=== PATIENT | male | born 1965 | race Caucasian/White ===

== ENCOUNTER 2019-06-12 12:35 | Outpatient (CLI) | payer BC, SELFPAY ==
--- NOTE | 2019-06-12 | ECHO_ITS ---
Patient Info Name: Cameron Joy Age: 53 years : 1965 Gender: Male Ht: 72 in Wt: 220 lbs BSA: 2.27 m2 HR: 65 bpm BP: 154 / 101 mmHg Heart Rhythm: Sinus Rhythm Technical Quality: Good Exam Date: 06/12/2019 12:57 PM Exam Location: [facility] Pulmonary Patient Status: Outpatient Admit Date: 06/12/2019 Staff Ordering Physician: Fredrick*, Demian Mcbride MD [employer] Member: Florin Del Rio RDCS Attending Provider: Fredrick*, Demian Mcbride MD Referring Physician: Justin SANZ; Exam Type: CA echo doppler color flow Study Info Indications R06.00 - Dyspnea, unspecified Complete two-dimensional, color flow and Doppler transthoracic echocardiogram is performed. Strain analysis performed. History/Risk Factors Dyspnea, HTN. Summary 1. Left ventricular chamber dimension is normal. 2. Left ventricular systolic function is normal, estimated at 60-65%. 3. There is moderately increased left ventricular wall thickness. 4. The left ventricular diastolic function is normal. 5. Global longitudinal strain is normal at -18.5%. 6. Left atrial chamber dimension is mildly enlarged. 7. There is trace mitral valve regurgitation. 8. There is trace tricuspid valve regurgitation. 9. No pulmonary hypertension, estimated pulmonary arterial systolic pressure is 33 mmHg. Left Ventricle Tissue doppler is not performed. Global longitudinal strain is normal at -18.5%. Left ventricular chamber dimension is normal. Left ventricular systolic function is normal, estimated at 60-65%. There is moderately increased left ventricular wall thickness. The left ventricular diastolic function is normal. Right Ventricle Right ventricular chamber dimension is normal. Right ventricular systolic function is normal. Left Atria Left atrial chamber dimension is mildly enlarged. Right Atria Right atrial chamber dimension is normal. Aortic Valve The aortic valve is trileaflet. There is no aortic valve stenosis. There is no aortic valve regurgitation. Pulmonic Valve There is no pulmonic regurgitation. Mitral Valve There is no mitral valve stenosis. There is trace mitral valve regurgitation. Tricuspid Valve There is trace tricuspid valve regurgitation. No pulmonary hypertension, estimated pulmonary arterial systolic pressure is 33 mmHg. Pericardium/Pleural There is no pericardial effusion. Inferior Vena Cava Normal inferior vena cava with >50% collapse upon inspiration consistent with normal right atrial pressure, 5 mmHg. Aorta The aortic root size at the sinus of Valsalva is normal. Left Ventricular Outflow Tract Name Value Normal LVOT 2D LVOT Diameter 2.2 cm LVOT Doppler LVOT Peak Gradient 6 mmHg LVOT Mean Gradient 3 mmHg LVOT VTI 26 cm LVOT VTI/AV VTI Ratio 0.8 LVOT Stroke Volume 95 ml LVOT CO 6.4 l/min LVOT CI 2.8 l/min/m2 Mitral Valve
--- NOTE | 2019-06-12 15:21 | WPDPFTINT ---
PFT Interpretation PFT Interpretation: DOS: 06/12/2019 REQUESTING: Dr Anderson REASON FOR TESTING: Dyspnea PULMONARY FUNCTION TESTS This test shows reliable and reproducible results. Spirometry: FEV1 is 109%< normal. FVC is 105%, normal. FEV1% is 75%, normal. No bronchodilator was given. Lung volumes: Total lung capacity is 103%, normal. Residual volume is not elevated, no evidence of air trapping. Airway resistance is elevated 168%. Diffusion: DLCO is normal 85%. Flow volume loop: Normal. IMPRESSION: Normal study, no bronchodilator was given. Mild increased in airway resistance. Mirna Napier MD
== END 2019-06-12 12:36 | disposition home or self-care (01) ==
PROVIDERS: PCP Internal Medicine; Visit Provider Internal Medicine
DX: R06.09 Other forms of dyspnea (principal)
CPT/HCPCS: 93306; 94375; 94726; 94729

== ENCOUNTER → 2022-12-03 12:52 | Outpatient (CLI) | payer BC, SELFPAY ==
--- NOTE | ~2022-12-03 | MR_ITS ---
CORRECTED REPORT Changed PCP from Damaris CAMARGO to Demian Anderson M.D. [id number] EXAMINATION: MR thoracic spine wo/w con DATE: 12/03/2022 14:50 INDICATION: Multiple sclerosis. TECHNIQUE: Magnetic resonance imaging (MRI) of the thoracic spine was performed without and with 20 mL MultiHance intravenous contrast. COMPARISON: None FINDINGS: There is 6 degrees levocurvature of thoracic spine. There is mild chronic anterior wedging of T6 vertebral body. Intervertebral disc heights are normal. The discs do not extend beyond the endplate margins. There is multilevel mild facet joint osteoarthritis. There is no neural foraminal stenosis or central canal stenosis. The spinal cord signal intensity is normal in the thoracic spine. There is no abnormal contrast enhancement. IMPRESSION: 1. Normal thoracic spinal cord. Reviewed, dictated and finalized at location E. MTDD
--- NOTE | ~2022-12-03 | MR_ITS ---
CORRECTED REPORT Changed PCP from Damaris CAMARGO to Demian Anderson M.D. [id number] EXAMINATION: MR cervical spine wo/w con DATE: 12/03/2022 14:49 INDICATION: Multiple sclerosis. TECHNIQUE: Magnetic resonance imaging (MRI) of the cervical spine was performed without and with 20 mL MultiHance intravenous contrast. COMPARISON: Cervical spine MRI 07/02/2011 FINDINGS: Bone alignment is normal. Vertebral body heights are normal. There is mildly decreased disc height at C6-C7. There are approximately 7 ill-defined lesions of increased T2-weighted signal intensity in the cervical spinal cord. No contrast enhancement. The following disc levels are specifically discussed: C2-C3: The disc does not extend beyond the endplate margin. There is mild left uncovertebral joint osteoarthritis. There is mild bilateral facet joint osteoarthritis. There is mild left neural foraminal stenosis. There is no central canal stenosis. C3-C4: The disc does not extend beyond the endplate margin. There is mild left uncovertebral joint osteoarthritis. There is mild right facet joint osteoarthritis. There is mild right neural foraminal stenosis. There is no central canal stenosis. C4-C5: The disc does not extend beyond the endplate margin. There is no uncovertebral joint osteoarthritis. There is no facet joint osteoarthritis. There is no neural foraminal stenosis. There is no central canal stenosis. C5-C6: The disc does not extend beyond the endplate margin. There is no uncovertebral joint osteoarthritis. There is no facet joint osteoarthritis. There is no neural foraminal stenosis. There is no central canal stenosis. C6-C7: There is a central extrusion. There is mild right uncovertebral joint osteoarthritis. There is mild bilateral facet joint osteoarthritis. There is mild right neural foraminal stenosis. There is mild central canal stenosis. C7-T1: The disc does not extend beyond the endplate margin. There is no uncovertebral joint osteoarthritis. There is severe bilateral facet joint osteoarthritis. There is mild lateral neural foraminal stenosis. There is no central canal stenosis. IMPRESSION: 1. Spinal cord lesions with worsening from 07/02/2011, consistent with multiple sclerosis. 2. Mild cervical spondylosis. Reviewed, dictated and finalized at location E. MTDD
--- NOTE | ~2022-12-03 | MR_ITS ---
CORRECTED REPORT Changed PCP from Damaris CAMARGO to Demian Anderson M.D. [id number] EXAMINATION: MR brain/brain stem wo/w con DATE: 12/03/2022 14:49 INDICATION: Multiple sclerosis. TECHNIQUE: Magnetic resonance imaging (MRI) of the brain and brainstem was performed without and with 20 mL MultiHance intravenous contrast. COMPARISON: Brain MRI 07/03/2011 FINDINGS: There are greater than 40 scattered foci of increased T2-weighted signal intensity in the cerebral white matter including periventricular and juxtacortical lesions. There is no infratentorial lesion. None of the lesions enhance. There is no acute ischemic infarct or intracranial hemorrhage. The ventricles are normal in size. There is mucosal thickening in the paranasal sinuses. The orbits are normal. The mastoid air cells are normal. IMPRESSION: 1. Moderate cerebral white matter disease with worsening from 07/03/2011, likely a combination multiple sclerosis and chronic small vessel ischemic disease. Reviewed, dictated and finalized at location E. MTDD
== END ==
PROVIDERS: PCP Internal Medicine; Visit Provider Student in an Organized Health Care Education/Training Program
DX: G35 Multiple sclerosis (principal); M43.02 Spondylolysis, cervical region; G95.9 Disease of spinal cord, unspecified; R90.82 White matter disease, unspecified
CPT/HCPCS: 70553; 72156; 72157; A9577

== ENCOUNTER → 2023-03-06 13:25 | Outpatient (CLI) | payer BC, SELFPAY ==
--- NOTE | ~2023-03-06 | CT_ITS ---
EXAMINATION: CTA brain carotid DATE: 03/06/2023 14:10 INDICATION: Right-sided monocular vision loss. Transient ischemic attack. TECHNIQUE: Computed tomographic angiography (CTA) of the head was performed without and with 100 mL O mnipaque-350 intravenous contrast. CTA of the neck was performed with intravenous contrast. Automated exposure control and iterative reconstruction technique were employed. The dose-length product was 1 610.56 mGy-cm. Maximum intensity projection and volume rendered 3D-reconstructions were created by barbara almanza technologist on a separate workstation. COMPARISON: Brain MRI 12/03/2022 FINDINGS: HEAD CTA: There are scattered areas of low attenuation in the cerebral white matter. There is no intr acranial hemorrhage, acute infarction, or abnormal intracranial mass lesion. The ventricles are odette l in size. There is mild mucosal thickening in the paranasal sinuses. There was some normal. The mast oid air cells are normal. Left vertebral artery is dominant. There is no significant stenosis of basi lar artery or the posterior cerebral arteries. There is no significant stenosis of the intracranial i nternal carotid arteries or anterior or middle cerebral arteries. Anterior communicating artery is no rmal. The posterior communicating arteries are normal. There is no aneurysm. NECK CTA: There are no pathologically enlarged lymph nodes. There is no significant stenosis of the v ertebral arteries. There is plaque in the proximal internal carotid arteries. There is 0% stenosis of the proximal right internal carotid artery relative to normal distal artery lumen diameter (NASCET c riteria). There is 0% stenosis of the proximal left internal carotid artery relative to normal distal artery lumen diameter. There is mild cervical spondylosis. IMPRESSION: 1. Moderate cerebral white matter disease, likely a combination of multiple sclerosis and chronic sma ll vessel ischemic disease. 2. No aneurysm or significant intracranial arterial stenosis. 3. 0% stenosis of the proximal internal carotid arteries relative to normal distal artery lumen diame ters (NASCET criteria). Reviewed, dictated and finalized at location E. WORKER IMPRESSION: 1. Moderate cerebral white matter disease, likely a combination of multiple scl erosis and chronic small vessel ischemic disease. 2. No aneurysm or significant intracranial arterial stenosis. 3. 0% stenosis of the proximal internal carotid arteries relative to normal dis kelsy artery lumen diameters (NASCET criteria).
[2023-03-06 13:42] LABS: Estimated Glomerular Filt Rate 52
== END ==
PROVIDERS: PCP Student in an Organized Health Care Education/Training Program; Visit Provider Student in an Organized Health Care Education/Training Program
DX: G45.9 Transient cerebral ischemic attack, unspecified (principal); G35 Multiple sclerosis; R90.82 White matter disease, unspecified
CPT/HCPCS: 70496; 70498; Q9967

== ENCOUNTER 2024-02-21 13:09 | Outpatient (CLI) | payer BC, SELFPAY ==
[2024-02-21 13:59] LABS: Basophils Percent Auto 0.6 % (0.2-1.2); Eosinophils Absolute Auto 0.5 K/mm3 (0-0.3); Eosinophils Percent Auto 7.2 % (0-4.4); Hematocrit 47.9 % (42.0-52.0); Hemoglobin 16.5 g/dL (14.0-18.0); Immature Granulocyte Absolute 0.02 K/mm3 (0.00-0.031); Immature Granulocyte Percent A 0.3 % (0-0.5); Lymphocytes Absolute Auto 0.76 K/mm3 (0.9-3.2); Lymphocytes Percent Auto 10.5 % (18.3-44.2); Mean Corpuscular HGB Conc 34.4 g/dl (32-36); Mean Corpuscular Hemoglobin 30.3 pg (26-34); Mean Corpuscular Volume 87.9 fl (80-100); Mean Platelet Volume 10.4 fl (7.4-10.4); Monocytes Absolute Auto 0.8 K/mm3 (0.1-0.6); Monocytes Percent Auto 10.6 % (2.6-8.5); Neutrophils Absolute Auto 5.1 K/mm3 (1.3-6.7); Neutrophils Percent Auto 70.8 % (45.5-73.1); Platelet Count Result 259 k/mm3 (150-375); Red Blood Count 5.45 M/mm3 (4.6-6.20); Red Cell Distribution Width 12.3 % (11.5-14.5); White Blood Count 7.2 K/mm3 (4.5-10.0)
[2024-02-21 14:11] LABS: Alanine Aminotransferase 53 U/L (6-50); Albumin Level 4.4 g/dL (3.5-5.1); Alkaline Phosphatase 85 U/L (38-126); Anion Gap 4 mmol/L (4-12); Aspartate Amino Transferase 30 U/L (17-59); Bilirubin,Total 0.6 mg/dL (0.2-1.3); Blood Urea Nitrogen 18 mg/dL (9-20); Calcium 9.1 mg/dL (8.4-10.2); Carbon Dioxide 26 mmol/L (22-30); Chloride 108 mmol/L (98-107); Estimated Glomerular Filt Rate > 60; Glucose 116 mg/dL (65-110); Potassium 4.2 mmol/L (3.4-5.0); Sodium 138 mmol/L (137-145)
== END 2024-02-21 13:10 | disposition home or self-care (01) ==
PROVIDERS: PCP Internal Medicine; Visit Provider Psychiatry & Neurology Neurology
DX: G35 Multiple sclerosis (principal); Z98.890 Other specified postprocedural states
CPT/HCPCS: 36415; 80053; 85025